=== PATIENT | female | born 1990 | race Caucasian/White ===

== ENCOUNTER 2020-08-04 17:25 | Inpatient (IN) ==
[2020-08-04 18:13] LABS: Basophils % 0.3 % (0.0-0.8); Eosinophils # 0.1 10*3/uL (0.0-0.87); Eosinophils % 0.6 % (0.00-10.9); Hematocrit 37.7 VOL% (35.7-47.0); Immature Granulocytes % 0.8 %; Lymphocytes # 1.9 10*3/uL (1.4-4.0); Lymphocytes % 15.8 % (21.3-54.2); Mean Corpuscular HGB Conc 31.8 GM/DL (32-36); Mean Platelet Volume 11.3 FL (9.6-12.0); Monocytes % 5.8 % (1.7-12.7); Neutrophils % 76.7 % (38.7-73.9); Platelet Count 178 T/CUMM (130-400); Red Blood Count 3.97 MC/CUMM (3.8-5.5); Red Cell Distribution Width 13.8 % (9.3-17.3); White Blood Count 12.2 T/CUMM (4-12)
[2020-08-04 18:30] LABS: Alanine Aminotransferase 22 U/L (13-56); Albumin 2.7 G/DL (3.4-5.0); Alkaline Phosphatase 197 U/L (45-117); Aspartate Amino Transferase 29 U/L (0-37); Bilirubin,Total < 0.39 MG/DL (0.2-1.0); Blood Urea Nitrogen 11 MG/DL (7-18); Calcium 9.1 MG/DL (8.5-10.1); Carbon Dioxide 20 MMOL/L (21-32); Estimated Glom Filtration Rate 124 ML/MIN; Glucose 145 MG/DL (74-106); Osmolality,Calculated 276.7 MOS/KG (273-304); Potassium 3.5 MMOL/L (3.5-5.1); Sodium 138 MMOL/L (136-145); Total Protein 6.8 G/DL (6.4-8.2)
[2020-08-04] MEDS ORDERED: BUTORPHANOL 2 MG/ML VIAL IV PRN (22:09)
[2020-08-05] MEDS: LACTATED RINGERS 1,000 ML IV SCH ×4 (00:08→15:14)
[2020-08-05] MEDS ORDERED: TERBUTALINE 1 MG/1 ML VIAL SUBCUT PRN (05:01)
[2020-08-05] MEDS ORDERED: TERBUTALINE 1 MG/1 ML VIAL ONE (05:05)
[2020-08-05] MEDS ORDERED: PROMETHAZINE 25 MG/1 ML VIAL IM ONE (07:01)
[2020-08-05] MEDS ORDERED: NALOXONE 0.4 MG/ML VIAL IV PRN (07:01)
[2020-08-05] MEDS ORDERED: ONDANSETRON 4 MG/2 ML VIAL IV ONE (07:01)
[2020-08-05] MEDS ORDERED: ePHEDrine 50 MG/ML VIAL IV PRN (07:01)
[2020-08-05] MEDS ORDERED: LACTATED RINGERS 1,000 ML IV ONE (07:01)
[2020-08-05] MEDS ORDERED: hydrOXYzine HCL 25 MG/1 ML VIAL IM PRN (07:01)
[2020-08-05] MEDS ORDERED: FAMOTIDINE 20 MG TABLET PO ONE (07:01)
[2020-08-05] MEDS ORDERED: diphenhydrAMINE 50 MG/1 ML VIAL IV PRN ×2 (07:01)
[2020-08-05] MEDS ORDERED: CITRIC ACID/SODIUM CITRATE 30 ML UDCUP PO ONE (07:01)
[2020-08-05] MEDS ORDERED: FAMOTIDINE 20 MG/2 ML VIAL IV ONE ×2 (07:02→07:08)
[2020-08-05] MEDS: fentaNYL 2 MCG/ROPIV 0.2% EPID 100 ML EPIDURAL SCH ×2 (07:40→15:14)
[2020-08-05 09:05] LABS: Bilirubin,Urine Negative (Negative); Blood, Urine Negative (Negative); Glucose,Urine (UA) Negative (Negative); Ketones,Urine Negative (Negative); Mucus,Urine Occasional /LPF (Occasional); Nitrite,Urine Negative (Negative); Protein,Urine Negative; RBC,Urine <1 /HPF (0-4); Urine Appearance CLEAR (Clear); Urine Color Yellow (Yellow); Urine Specific Gravity 1.011 (1.001-1.035); Urine Urobilinogen < 2.0 EU/DL (0.2-1.0)
[2020-08-05] MEDS ORDERED: OXYTOCIN/LR 20 UNIT/1,000 ML BAG IV PRN (09:12)
[2020-08-05] MEDS ORDERED: fentaNYL 100 MCG/2 ML VIAL ONE ×2 (16:44→23:44)
[2020-08-05] MEDS ORDERED: LIDOCAINE MPF 2% /EPI 20 ML VIAL ONE ×3 (16:45→23:38)
[2020-08-05] MEDS ORDERED: ACETAMINOPHEN 500 MG TABLET PO PRN (19:10)
[2020-08-05] MEDS ORDERED: ceFAZolin 2,000 MG in PREMIX 1 EACH IV ONE (23:15)
[2020-08-05] MEDS ORDERED: TRANEXAMIC ACID 1,000 MG/10 ML VIAL ONE (23:22)
[2020-08-05] MEDS ORDERED: OXYTOCIN/LR 20 UNIT/1,000 ML BAG IV ONE (23:22)
[2020-08-05] MEDS ORDERED: miSOPROStoL 200 MCG TABLET ONE (23:22)
[2020-08-05] MEDS ORDERED: METHYLERGONOVINE 0.2 MG/1 ML AMP ONE (23:22)
[2020-08-05] MEDS ORDERED: CARBOPROST TROMETHAMINE 250 MCG/ML AMP IM ONE (23:22)
[2020-08-05] MEDS ORDERED: SODIUM CHLORIDE 0.9% 0 ML IV ONE (23:23)
[2020-08-05] MEDS ORDERED: ONDANSETRON 4 MG/2 ML VIAL ONE (23:48)
[2020-08-06 00:17] LABS: Cord Venous Blood HCO3 19.4 MMOL/L; Cord Venous Blood PCO2 41.8 MMHG; Cord Venous Blood PO2 30.4 MMHG
[2020-08-06] MEDS ORDERED: ACETAMINOPHEN INJ 1,000 MG/100 ML VIAL IV ONE (00:22)
[2020-08-06] MEDS ORDERED: propofoL 200 MG/20 ML VIAL IV ONE ×2 (00:22→00:30)
[2020-08-06] MEDS ORDERED: KETOROLAC 30 MG/1 ML VIAL ONE (00:22)
[2020-08-06] MEDS ORDERED: ONDANSETRON 4 MG/2 ML VIAL IV PRN (00:42)
[2020-08-06] MEDS ORDERED: IBUPROFEN 800 MG TABLET PO PRN (00:42)
[2020-08-06] MEDS ORDERED: RHO(D) IMMUNE GLOBULIN 300 MCG SYRINGE IM ONE (00:42)
[2020-08-06] MEDS ORDERED: OXYTOCIN/LR 20 UNIT/1,000 ML BAG IV ONE (00:42)
[2020-08-06] MEDS ORDERED: ACETAMINOPHEN 325 MG TABLET PO PRN (00:42)
[2020-08-06] MEDS ORDERED: oxyCODONE/ACETAMINOPHEN 5-325 MG TABLET PO PRN (00:44)
[2020-08-06] MEDS ORDERED: LACTATED RINGERS 1,000 ML IV SCH (01:00)
[2020-08-06] MEDS ORDERED: HYDROmorphone 2 MG/1 ML VIAL IV PRN (01:58)
[2020-08-06 05:27] LABS: Basophils # 0.1 10*3/uL (0.0-0.2); Basophils % 0.3 % (0.0-0.8); Hematocrit 31.8 VOL% (35.7-47.0); Hemoglobin 10.2 GM/DL (12.0-16.0); Immature Granulocytes % 1.3 %; Immature Granulocytes Absolute 0.36 #; Lymphocytes # 1.3 10*3/uL (1.4-4.0); Lymphocytes % 4.8 % (21.3-54.2); Mean Corpuscular HGB Conc 32.1 GM/DL (32-36); Mean Corpuscular Volume 96.7 FL (87-102); Mean Platelet Volume 11.7 FL (9.6-12.0); Monocytes % 5.5 % (1.7-12.7); Neutrophils % 88.1 % (38.7-73.9); Platelet Count 161 T/CUMM (130-400); Red Blood Count 3.29 MC/CUMM (3.8-5.5); Red Cell Distribution Width 14.3 % (9.3-17.3)
[2020-08-06 06:13] LABS: Band Neutrophils 4 % (0-10); Lymphocytes 6 % (20-55); Segmented Neutrophils 85 % (50-85); Total Cells Counted 100
[2020-08-06 06:15] LABS: Hypochromasia Slight; Microcytosis 1+; Platelet Estimate Adequate
[2020-08-06] MEDS ORDERED: ACETAMINOPHEN 500 MG TABLET PO PRN (06:30)
[2020-08-06] MEDS ORDERED: KETOROLAC 30 MG/1 ML VIAL IM ONE (07:00)
[2020-08-06] MEDS: KETOROLAC 30 MG/1 ML VIAL IV SCH ×3 (07:00→21:13)
[2020-08-06] MEDS: MULTIVITAMIN (PRENATAL) TABLET PO SCH (08:55)
[2020-08-06] MEDS: DOCUSATE SODIUM 100 MG CAPSULE PO SCH ×2 (08:55→20:05)
[2020-08-06] MEDS: ACETAMINOPHEN/CODEINE 300-30 MG TABLET PO PRN ×2 (10:29→20:04)
[2020-08-06 13:51] LABS: Basophils # 0.1 10*3/uL (0.0-0.2); Basophils % 0.2 % (0.0-0.8); Eosinophils # 0.1 10*3/uL (0.0-0.87); Eosinophils % 0.4 % (0.00-10.9); Hematocrit 30.2 VOL% (35.7-47.0); Hemoglobin 9.6 GM/DL (12.0-16.0); Immature Granulocytes % 0.8 %; Lymphocytes # 2.8 10*3/uL (1.4-4.0); Lymphocytes % 11.2 % (21.3-54.2); Mean Corpuscular HGB Conc 31.8 GM/DL (32-36); Mean Corpuscular Volume 96.5 FL (87-102); Mean Platelet Volume 11.8 FL (9.6-12.0); Monocytes % 4.5 % (1.7-12.7); Neutrophils % 82.9 % (38.7-73.9); Platelet Count 164 T/CUMM (130-400); Red Blood Count 3.13 MC/CUMM (3.8-5.5); Red Cell Distribution Width 14.6 % (9.3-17.3)
[2020-08-06 14:50] LABS: Band Neutrophils 2 % (0-10); Lymphocytes 9 % (20-55); Segmented Neutrophils 88 % (50-85); Total Cells Counted 100
[2020-08-06 14:51] LABS: Atypical Lymphocytes Few; Platelet Estimate Adequate; Polychromasia Slight
[2020-08-06] MEDS: MAGNESIUM HYDROXIDE SUSP 30 ML UDCUP PO PRN (16:22)
[2020-08-06] MEDS: SIMETHICONE CHEW 80 MG TABLET PO PRN (16:22)
[2020-08-06] MEDS ORDERED: KETOROLAC 30 MG/1 ML VIAL IV ONE (19:57)
[2020-08-06] MEDS ORDERED: BISACODYL 10 MG SUPP RECTAL PRN (19:58)
[2020-08-07] MEDS: IBUPROFEN 800 MG TABLET PO PRN ×4 (03:19→19:54)
[2020-08-07] MEDS: MAGNESIUM HYDROXIDE SUSP 30 ML UDCUP PO PRN (04:29)
[2020-08-07] MEDS: SIMETHICONE CHEW 80 MG TABLET PO PRN ×2 (04:29→19:55)
[2020-08-07] MEDS: ACETAMINOPHEN/CODEINE 300-30 MG TABLET PO PRN ×3 (05:21→22:23)
[2020-08-07] MEDS: MULTIVITAMIN (PRENATAL) TABLET PO SCH (08:07)
[2020-08-07] MEDS: DOCUSATE SODIUM 100 MG CAPSULE PO SCH ×2 (08:07→19:55)
[2020-08-08] MEDS: DOCUSATE SODIUM 100 MG CAPSULE PO SCH ×2 (04:09→09:09)
[2020-08-08] MEDS: IBUPROFEN 800 MG TABLET PO PRN (05:11)
[2020-08-08] MEDS: ACETAMINOPHEN/CODEINE 300-30 MG TABLET PO PRN (05:12)
[2020-08-08 08:31] VITALS: BP 107/68
[2020-08-08] MEDS: MULTIVITAMIN (PRENATAL) TABLET PO SCH (09:09)
== END 2020-08-08 11:40 | disposition home or self-care (01) | DRG 788 ==
LOC: N.LD 17:25 → N.OB 08-06 03:28
PROVIDERS: ADMIT Obstetrics & Gynecology; ATTEND Obstetrics & Gynecology
PROC: LDCSECT (ICD-10-PCS; 2020-08-05 23:50)

== ENCOUNTER 2021-10-14 16:22 | Inpatient (IN) ==
[2021-10-14] MEDS ORDERED: miSOPROStoL 200 MCG TABLET RECTAL PRN (16:59)
[2021-10-14] MEDS ORDERED: ceFAZolin 2,000 MG/50 ML DUPLEX IV ONE (16:59)
[2021-10-14] MEDS ORDERED: CARBOPROST TROMETHAMINE 250 MCG/ML AMP IM PRN (16:59)
[2021-10-14] MEDS ORDERED: CITRIC ACID/SODIUM CITRATE 30 ML UDCUP PO ONE (16:59)
[2021-10-14] MEDS ORDERED: OXYTOCIN/LR 20 UNIT/1,000 ML BAG IV ONE ×3 (16:59→19:37)
[2021-10-14] MEDS ORDERED: TRANEXAMIC ACID 1,000 MG in SODIUM CHLORIDE 0.9% 100 ML IV PRN (16:59)
[2021-10-14] MEDS ORDERED: FAMOTIDINE 20 MG/2 ML VIAL IV ONE (16:59)
[2021-10-14] MEDS ORDERED: METHYLERGONOVINE 0.2 MG/1 ML AMP IM PRN (16:59)
[2021-10-14] MEDS ORDERED: LACTATED RINGERS 1,000 ML IV SCH ×2 (17:00→20:00)
[2021-10-14 17:45] LABS: Basophils % 0.3 % (0.0-0.8); Eosinophils % 0.3 % (0.00-10.9); Hematocrit 37.6 VOL% (35.7-47.0); Hemoglobin 12.1 GM/DL (12.0-16.0); Immature Granulocytes % 0.5 %; Immature Granulocytes Absolute 0.06 #; Lymphocytes # 1.8 10*3/uL (1.4-4.0); Lymphocytes % 14.3 % (21.3-54.2); Mean Corpuscular HGB Conc 32.2 GM/DL (32-36); Mean Corpuscular Volume 89.1 FL (87-102); Monocytes # 0.9 10*3/uL (0.11-0.8); Monocytes % 6.9 % (1.7-12.7); Neutrophils % 77.7 % (38.7-73.9); Platelet Count 217 T/CUMM (130-400); Red Blood Count 4.22 MC/CUMM (3.8-5.5); Red Cell Distribution Width 14.5 % (9.3-17.3); White Blood Count 12.4 T/CUMM (4-12)
[2021-10-14] MEDS ORDERED: miSOPROStoL 200 MCG TABLET ONE (17:48)
[2021-10-14] MEDS ORDERED: TRANEXAMIC ACID 1,000 MG/10 ML VIAL ONE (17:49)
[2021-10-14] MEDS ORDERED: METHYLERGONOVINE 0.2 MG/1 ML AMP ONE (17:49)
[2021-10-14] MEDS ORDERED: CARBOPROST TROMETHAMINE 250 MCG/ML AMP IM ONE (17:49)
[2021-10-14] MEDS ORDERED: SODIUM CHLORIDE 0.9% 0 ML IV ONE (17:49)
[2021-10-14 18:03] LABS: Alanine Aminotransferase 16 U/L (13-56); Albumin 2.9 G/DL (3.4-5.0); Alkaline Phosphatase 169 U/L (45-117); Aspartate Amino Transferase 20 U/L (0-37); Bilirubin,Total < 0.39 MG/DL (0.20-1.00); Blood Urea Nitrogen 11 MG/DL (7-18); Calcium 9.1 MG/DL (8.5-10.1); Carbon Dioxide 23 MMOL/L (21-32); Chloride 107 MMOL/L (98-107); Glucose 74 MG/DL (74-106); Osmolality,Calculated 270.8 MOS/KG (273-304); Potassium 3.8 MMOL/L (3.5-5.1); Sodium 137 MMOL/L (136-145); Total Protein 7.2 G/DL (6.4-8.2)
[2021-10-14] MEDS ORDERED: ONDANSETRON 4 MG/2 ML VIAL ONE (18:22)
[2021-10-14] MEDS ORDERED: BUPIVACAINE SPINAL 0.75% 2 ML AMP SPINAL ONE (18:22)
[2021-10-14] MEDS ORDERED: buprenorphine HCL 0.3 MG/ML VIAL ONE (18:22)
[2021-10-14] MEDS ORDERED: PHENYLEPHRINE 1 MG/10 ML SYRINGE IV ONE (18:41)
[2021-10-14] MEDS ORDERED: ACETAMINOPHEN INJ 1,000 MG/100 ML VIAL IV ONE (18:41)
[2021-10-14] MEDS ORDERED: KETOROLAC 30 MG/1 ML VIAL ONE (18:41)
[2021-10-14] MEDS ORDERED: ONDANSETRON 4 MG/2 ML VIAL IV PRN (19:37)
[2021-10-14] MEDS ORDERED: RHO(D) IMMUNE GLOBULIN 300 MCG SYRINGE IM ONE (19:37)
[2021-10-14] MEDS ORDERED: MAGNESIUM HYDROXIDE SUSP 30 ML UDCUP PO PRN (19:37)
[2021-10-14] MEDS ORDERED: ACETAMINOPHEN 325 MG TABLET PO PRN (19:37)
[2021-10-14 19:56] LABS: Cord Venous Blood HCO3 21.8 MMOL/L; Cord Venous Blood PCO2 45.7 MMHG; Cord Venous Blood PO2 27.9
[2021-10-14 19:59] LABS: Cord Arterial Blood HCO3 19.8 MMOL/L
[2021-10-14 20:10] LABS: Mucus,Urine Occasional /LPF (Occasional); RBC,Urine 1 /HPF (0-4); Squamous Epithelial Cell,Urine Occasional /HPF (0-10)
[2021-10-14 20:11] LABS: Bilirubin,Urine Negative (Negative); Blood, Urine Negative (Negative); Glucose,Urine (UA) Negative (Negative); Ketones,Urine Trace mg/dL (Negative); Nitrite,Urine Negative (Negative); Protein,Urine Negative (Negative); Urine Appearance Clear (Clear); Urine Color Yellow (Yellow); Urine Specific Gravity 1.015 (1.001-1.035); Urine Urobilinogen 0.2 eU/dL (<2.0); Urine pH 6.5 (4.5-8.0)
[2021-10-14] MEDS: ACETAMINOPHEN/CODEINE 300-30 MG TABLET PO PRN (23:59)
[2021-10-15] MEDS: KETOROLAC 30 MG/1 ML VIAL IV SCH ×3 (01:25→12:48)
[2021-10-15] MEDS: ACETAMINOPHEN/CODEINE 300-30 MG TABLET PO PRN ×4 (04:40→20:30)
[2021-10-15] MEDS: SIMETHICONE CHEW 80 MG TABLET PO PRN ×3 (04:40→18:17)
[2021-10-15 06:02] LABS: Basophils # 0.1 10*3/uL (0.0-0.2); Basophils % 0.3 % (0.0-0.8); Eosinophils % 0.2 % (0.00-10.9); Hemoglobin 10.6 GM/DL (12.0-16.0); Immature Granulocytes % 0.6 %; Lymphocytes # 1.9 10*3/uL (1.4-4.0); Lymphocytes % 11.6 % (21.3-54.2); Mean Corpuscular HGB Conc 31.2 GM/DL (32-36); Mean Corpuscular Volume 91.6 FL (87-102); Mean Platelet Volume 10.9 FL (9.6-12.0); Monocytes # 0.9 10*3/uL (0.11-0.8); Monocytes % 5.2 % (1.7-12.7); Neutrophils % 82.1 % (38.7-73.9); Platelet Count 193 T/CUMM (130-400); Red Blood Count 3.71 MC/CUMM (3.8-5.5); Red Cell Distribution Width 14.2 % (9.3-17.3); White Blood Count 16.5 T/CUMM (4-12)
[2021-10-15] MEDS: MULTIVITAMIN (PRENATAL) TABLET PO SCH (09:39)
[2021-10-15] MEDS: DOCUSATE SODIUM 100 MG CAPSULE PO SCH ×2 (09:39→20:26)
[2021-10-15] MEDS: IBUPROFEN 800 MG TABLET PO PRN (20:00)
[2021-10-15] MEDS ORDERED: MAGNESIUM CITRATE 300 ML BOTTLE PO ONE (20:04)
[2021-10-16] MEDS: SIMETHICONE CHEW 80 MG TABLET PO PRN ×2 (00:34→06:19)
[2021-10-16] MEDS: ACETAMINOPHEN/CODEINE 300-30 MG TABLET PO PRN ×3 (00:34→12:05)
[2021-10-16] MEDS: IBUPROFEN 800 MG TABLET PO PRN ×2 (04:37→12:04)
[2021-10-16 07:50] VITALS: BP 100/56
[2021-10-16] MEDS: MULTIVITAMIN (PRENATAL) TABLET PO SCH (09:23)
[2021-10-16] MEDS: DOCUSATE SODIUM 100 MG CAPSULE PO SCH (09:23)
== END 2021-10-16 13:30 | disposition home or self-care (01) | DRG 788 ==
LOC: N.LD 16:22 → N.OB 10-15 00:29
PROVIDERS: ADMIT Obstetrics & Gynecology; ATTEND Obstetrics & Gynecology
PROC: LDCSECT (ICD-10-PCS; 2021-10-14 18:00)